=== PATIENT | female | born 1990 | race American Indian/Alaskan Native ===

== ENCOUNTER 2016-03-04 16:16 | Outpatient (CLI) | payer MEDICAID ==
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
[2016-03-04] MEDS ORDERED: PROVENTIL IH ONE (16:45)
[2016-03-04 17:13] LABS: Basophils % (Auto) 0.2 % (0.0-1.8); Eosinophils % (Auto) 2.2 % (0.0-4.3); Hematocrit 27.9 % (30.3-42.9); Hemoglobin 8.9 gm/dl (10.1-14.3); Mean Corpuscular HGB Conc 32 % (30-34); Mean Corpuscular Volume 79 fl (79-97); Platelet Count 210 K/mm3 (140-440); Red Blood Count 3.54 M/mm3 (3.65-5.03); Red Cell Distribution Width 16.6 % (13.2-15.2); White Blood Count 10.1 K/mm3 (4.5-11.0)
[2016-03-04 17:33] LABS: Blood Urea Nitrogen 3 mg/dL (7-17); Calcium 8.6 mg/dL (8.4-10.2); Carbon Dioxide 22 mmol/L (22-30); Chloride 99.2 mmol/L (98-107); Glucose 77 mg/dL (65-100); Potassium 3.9 mmol/L (3.6-5.0); Sodium 135 mmol/L (137-145)
[2016-03-04 17:41] LABS: Anion Gap 18 mmol/L; Mean Corpuscular Hemoglobin 25 pg (28-32)
[2016-03-04 17:54] LABS: ISTAT Base Excess -3; ISTAT DEVICE 0; ISTAT HCO3 21.1; ISTAT PCO2 32.4 (35-45); ISTAT PH 7.423 (7.35-7.45); ISTAT PO2 119 (80-105); ISTAT SO2 99; ISTAT TCO2 22
[2016-03-04 20:38] VITALS: BP 109/62
[2016-03-04] MEDS ORDERED: LACTATED RINGERS 1,000 ML ONE (21:19)
[2016-03-04] MEDS ORDERED: LACTATED RINGERS 500 ML IV ONE (21:30)
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
== END 2016-03-04 22:37 | disposition home or self-care (01) ==
LOC: TRG 16:16 → ED 16:16 → EDSTATUS 19:21 → TRG 19:24 → LD 20:20 → TRG 22:37
PROVIDERS: ATTEND Obstetrics & Gynecology Gynecology
DX: J70.5 Respiratory conditions due to smoke inhalation (principal)
CPT/HCPCS: 36415; 71010; 80048; 82375; 82803; 85025; 94640; 96360; J7120